=== PATIENT | female | born 1940 | race Caucasian/White ===

== ENCOUNTER 2017-06-16 15:46 | Emergency (ER) | payer OTHER ==
[~2017-06-16] VITALS: Ht 167.6 cm; Wt 78.0 kg
[~2017-06-16 15:46] MED LIST: ASPI81TA11 PO; HYDR12.56 OR; LEVO50TA4 PO; LOSA50TA PO; MEVA40TA PO
[2017-06-16 15:48] VITALS: BP 156/67; PULSE 77; RESP 16; TEMP 97.6; O2SAT 97
[2017-06-16] MEDS ORDERED: HYDR12.57 PO (16:02)
[2017-06-16] MEDS ORDERED: MOBI7.5T PO (16:02)
[2017-06-16] MEDS ORDERED: LOSA50TA PO (16:02)
[2017-06-16] MEDS ORDERED: LEVO50TA4 PO (16:02)
[2017-06-16] MEDS ORDERED: voltaren PO (16:02)
[2017-06-16] MEDS ORDERED: ROBA500T PO (16:10)
--- NOTE | 2017-06-16 16:11 | PD ---
HPI . Neck pain Chief Complaint: Back/ Neck Pain or Injury Time Seen by Provider: 16:00 Travel History International Travel<30 days: No Contact w/Intl Traveler<30days: No Traveled to known affect area: No History of Present Illness HPI 77-year-old female presents to emergency room for evaluation of neck pain. Patient states she woke up with neck pain last Friday on both her right and left side of neck. Patient has no midline spinal tenderness. Patient denies any falls, traumas, injuries. Patient has any fever, chills, malaise. Patient denies changing her pillow or mattress sleep positioning. PFSH Past Medical History Hx Anticoagulant Therapy: No Cardiovascular Problems: Yes (HTN) High Cholesterol: Yes Diabetes: No Diminished Hearing: No Hypertension: Yes Thyroid Disease: Yes (Hypothyroidism) ?: Not Past Surgical History Hysterectomy: Yes (Total-1987) Other Surgery: Yes (Lobectomy-1987) Social History Alcohol Use: No Tobacco Use: No Substance Use: No Allergies-Medications (Allergen,Severity, Reaction): Coded Allergies: No Known Allergies (Unverified Adverse Reaction, Unknown, 06/16/17) Reported Meds & Prescriptions Reported Meds & Active Scripts Active Robaxin (Methocarbamol) 500 Mg Tab 500 Mg PO TID Reported [voltaren] 75 Mg PO DAILY Mobic (Meloxicam) 7.5 Mg Tab 7.5 Mg PO DAILY Levothyroxine (Levothyroxine Sodium) 50 Mcg Tab 50 Mcg PO DAILY Hydrochlorothiazide 12.5 Mg Cap 12.5 Mg PO DAILY Losartan (Losartan Potassium) 50 Mg Tab 50 Mg PO DAILY Review of Systems Except as stated in HPI: all other systems reviewed are Neg Physical Exam Narrative GENERAL: Well-nourished, well-developed 77-year-old female patient in no acute distress. Nontoxic appearing. SKIN: Focused skin assessment warm/dry. HEAD: Normocephalic. Atraumatic. NEUROLOGICAL: Awake and alert. Cranial nerves II through XII intact. Motor and sensory grossly within normal limits. Five out of 5 muscle strength in all muscle groups. Normal speech. EYES: Demonstrates PERRLA bilaterally. No scleral icterus. No injection or drainage. NECK: Supple, trachea midline. No JVD or lymphadenopathy. CARDIOVASCULAR: Regular rate and rhythm without murmurs, gallops, or rubs. RESPIRATORY: Breath sounds equal bilaterally. No accessory muscle use. GASTROINTESTINAL: Abdomen soft, non-tender, nondistended. MUSCULOSKELETAL: No obvious deformity, ecchymosis, cyanosis, or edema. BACK: No midline spinal tenderness. No obvious deformity, ecchymosis, erythema , cyanosis, edema. No CVA tenderness. Data Data Last Documented VS Vital Signs Date Time Temp Pulse Resp B/P (MAP) Pulse Ox O2 Delivery O2 Flow Rate FiO2 06/16/17 15:48 97.6 77 16 156/67 (96) 97 Orders Orders Ketorolac Inj (Toradol Inj) (06/16/17 16:15) Orphenadrine Inj (Norflex Inj) (06/16/17 16:15) Ed Discharge Order (06/16/17 16:12) [facility] Medical Decision Making Medical Screen Exam Complete: Yes Emergency Medical Condition: Yes Interpretation(s) Afebrile, no tachycardia Differential Diagnosis Differential diagnoses include but not limited to muscle cramps, contusion, sprain, strain Narrative Course 77 year female presents emergency department for evaluation of bilateral sided neck pain. Patient states she woke up that the neck pain and couple days ago. Patient denies any trauma, injuries or fall. Patient's physical exam was consistent with muscular pain. Patient states she called her primary care physician and he ordered her an NSAID called diclofenac this afternoon. She has taken 1 but the pain persisted so she came to the emergency room for evaluation. Patient was given an IM injection of Toradol and Norflex. Patient was given a prescription to add Robaxin to her diclofenac regimen. Patient was discharged home with instructions to follow-up with her primary care but to return to the emergency department with any worsening condition. Diagnosis Primary Impression: Neck pain, musculoskeletal Referrals: Primary Care Physician Patient Instructions: General Instructions, Muscle Strain (ED) Additional Instructions: Please return to emergency department if your symptoms return or worsen. Follow up with your primary care provider. Take medications as prescribed. Use heating pads or ice packs to help with pain management. Med/Other Pt SpecificInfo: Prescription(s) given Scripts Methocarbamol (Robaxin) 500 Mg Tab 500 MG PO TID for Muscle Spasm, #15 TAB 0 Refills Prov: Raquel Abdalla 06/16/17 Disposition: 01 DISCHARGE HOME Condition: Stable Raquel Abdalla Jun 16, 2017 16:11
[2017-06-16] MEDS ORDERED: KETOROLAC TROMETHAMINE 60 MG/2 ML (IM) VIAL IM ONE (16:15)
[2017-06-16] MEDS ORDERED: ORPHENADRINE INJ 60 MG/2 ML AMP IM ONE (16:15)
== END 2017-06-16 16:32 | disposition home or self-care (01) ==
LOC: PHEFT 15:46
DX: M54.2 Cervicalgia (principal); M79.1 Myalgia; E78.00 Pure hypercholesterolemia, unspecified; I10 Essential (primary) hypertension; E03.9 Hypothyroidism, unspecified
CPT/HCPCS: 96372; 99284; J1885; J2360